=== PATIENT | male | born 1975 | race Caucasian/White ===

== ENCOUNTER 2020-03-24 12:26 | Emergency (ER) | payer OTHER ==
[~2020-03-24] VITALS: Ht 170.2 cm; Wt 108.9 kg
--- NOTE | 2020-03-24 13:14 | Emergency Department Note ---
History of Present Illnes History of Present Illness Chief Complaint: Extremity Trauma/Pain History of Present Illness This is a 44 year old male arrived to the ED with atraumatic right foot pain. Patient states the pain is isolated to the base of his second toe, denies any trauma. Patient states pain is worse with ambulation. Patient denies any numbness or weakness. 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 Any updates have been documented here. (LUCRECIA ALVARADO DO) Past Medical History Recent Fever: No Clinical Suspicion of Infectio: No New/Unexplained Change in Ment: No Past Medical History: COPD Other Surgery: KNEE (LUCRECIA ALVARADO DO) Social History Smoking Cessation: Current some day smoker Counseling Performed: Yes Alcohol Use: Social Any Illegal Drug Use: No TB Exposure/Symptoms: No Physically hurt or threatened: No (LUCRECIA ALVARADO, ) Family History Family history of heart diseas: Yes (LUCRECIA ALVARADO DO) Other Last Tetanus: utd (LUCRECIA ALVARADO DO) Review of Systems Review of Systems Constitutional: Reports no symptoms EENTM: Reports no symptoms Cardiovascular: Reports no symptoms Respiratory: Reports no symptoms Gastrointestinal: Reports no symptoms Genitourinary: Reports no symptoms Musculoskeletal: Reports as per HPI, Reports joint pain Integumentary: Reports no symptoms Neurological: Reports no symptoms Psychological: Reports no symptoms Endocrine: Reports no symptoms Hematological/Lymphatic: Reports no symptoms (LUCRECIA ALVARADO, ) Physical Exam Related Data Allergies: Coded Allergies: No Known Allergies (Unverified , 10/18/14) Triage Vital Signs Vital Signs Date Time Temp Pulse Resp B/P (MAP) Pulse Ox O2 Delivery O2 Flow Rate FiO2 03/24/20 12:33 97.8 93 16 155/82 97 Vital signs reviewed: Yes (LUCRECIA ALVARADO, ) Physical Exam CONSTITUTIONAL Constitutional: Present well-developed, Present well-nourished HENT HENT: Present normocephalic, Present atraumatic, Present oropharynx clear/moist, Present nose normal HENT L/R: Present left ext ear normal, Present right ext ear normal EYES Eyes: Reports PERRL, Reports conjunctivae normal NECK Neck: Present ROM normal PULMONARY Pulmonary: Present effort normal, Present breath sounds normal CARDIOVASCULAR Cardiovascular: Present regular rhythm, Present heart sounds normal, Present capillary refill normal, Present normal rate GASTROINTESTINAL Abdominal: Present soft, Present nontender, Present bowel sounds normal GENITOURINARY Genitourinary: Present exam deferred SKIN Skin: Present warm, Present dry MUSCULOSKELETAL Musculoskeletal: Present ROM normal, Present swelling, Present other (right lower extremity cellulitis noted with swelling and erythema, normal DP/PT pulses, compartments otherwise soft) NEUROLOGICAL Neurological: Present alert, Present oriented x 3, Present no gross motor or sensory deficits PSYCHOLOGICAL Psychological: Present mood/affect normal, Present judgement normal (LUCRECIA ALVARADO DO) Results Laboratory Lab results reviewed: Yes (LUCRECIA ALVARADO DO) Imaging Imaging results reviewed: Yes (LUCRECIA ALVARADO DO) Assessment & Plan Medical Decision Making MDM 41-year-old male arrives to the ED with complaints of right lower foot pain, noted to be markedly swollen superimposed cellulitis. Patient given a dose of IV antibiotics for further workup and management. (LUCRECIA ALVARADO DO) MDM 44 yom with pain in the R foot. Diff Dx : cellulitis, osteomyelitis, fracture, foot sprain, gout (TARIQ SOUTH DO) Assessment & Plan Final Impression: (1) Cellulitis of foot, right (TARIQ SOUTH DO) Depart Disposition: HOME, SELF-CARE Last Vital Signs Date Time Temp Pulse Resp B/P (MAP) Pulse Ox O2 Delivery O2 Flow Rate FiO2 03/24/20 12:33 97.8 93 16 155/82 97 (LUCRECIA ALVARADO DO) Last Vital Signs Date Time Temp Pulse Resp B/P (MAP) Pulse Ox O2 Delivery O2 Flow Rate FiO2 03/24/20 16:11 65 16 112/72 100 03/24/20 13:22 98.6 (TARIQ SOUTH DO) Home Meds Active Scripts Tramadol Hcl (ULTRAM) 50 Mg Tablet, 50 MG PO Q6HR PRN for Mild Pain (1-3) or Fever>100.8, #12 TAB Prov:LUCRECIA ALVARADO DO 03/24/20 LUCRECIA ALVARADO DO Mar 24, 2020 12:57 TARIQ SOUTH Mar 24, 2020 20:05
--- NOTE | 2020-03-24 14:17 | Diagnostic Imaging Report ---
EXAMINATION: FOOT RIGHT COMPLETE INDICATION: Foot pain COMPARISON: None FINDINGS: No acute fracture or dislocation. Alignment is anatomic. Soft tissues appear unremarkable. Mild Achilles enthesopathy. IMPRESSION: No acute osseous injury. Signed by: Alfred Thomas MD on 03/24/2020 2:14 PM
[2020-03-24] MEDS ORDERED: ULTRAM50 MG PO (14:46)
[2020-03-24] MEDS ORDERED: CLINDAMYCIN PHOS 900MG/ 50ML 50 ML IV STA (15:42)
[2020-03-24 16:13] LABS: BASOPHILS # (AUTO) 0.1 (0.0-0.1); BASOPHILS % 0.6 % (0.0-1.0); EOSINOPHILS # (AUTO) 0.3 (0.0-0.4); EOSINOPHILS % 2.4 % (0.0-6.0); HEMATOCRIT 47.2 % (38.2-49.6); HEMOGLOBIN 15.3 g/dL (14.0-18.0); LYMPHOCYTES # (AUTO) 2.9 (1.0-3.2); LYMPHOCYTES % 21.8 % (18.0-39.1); MEAN CORPUSCULAR HEMOGLOBIN 29.5 pg (28-32); MEAN CORPUSCULAR HGB CONC 32.4 g/dL (31-35); MEAN CORPUSCULAR VOLUME 90.9 fL (81-99); MONOCYTES # (AUTO) 0.9 (0.2-0.8); MONOCYTES % 6.4 % (4.4-11.3); NEUTROPHILS % 67.8 % (38.7-80.0); PLATELET COUNT 231 x10e3/uL (140-360); RED BLOOD COUNT 5.19 x10e6/uL (4.3-5.7); RED CELL DISTRIBUTION WIDTH 12.9 % (11.7-14.4)
[2020-03-24 16:30] LABS: ALANINE AMINOTRANSFERASE 74 IU/L (0-55); ALBUMIN 4.1 g/dL (3.5-5.0); ALBUMIN/GLOBULIN RATIO 1.2 (0.8-2.0); ALKALINE PHOSPHATASE 102 IU/L (40-150); ANION GAP 18.8 mmol/L (8-16); BLOOD UREA NITROGEN 18 mg/dL (7-26); BUN/CREATININE RATIO 18 (6-25); CALCIUM 9.2 mg/dL (8.4-10.2); CARBON DIOXIDE 20 mmol/L (22-29); CHLORIDE 106 mmol/L (98-107); CREATININE, SERUM 1.02 mg/dL (0.72-1.25); EST GLOMERULAR FILTRATION RATE > 60 ML/MIN (60-); GLUCOSE 85 mg/dL (74-118); POTASSIUM 3.8 mmol/L (3.5-5.1); SODIUM 141 mmol/L (136-145)
[2020-03-24] MEDS ORDERED: HYDROCODONE/APAP 10MG-325MG TAB PO ONE (17:30)
[2020-03-24] MEDS ORDERED: TRAMADOL HCL 50 MG TAB PO PRN (18:45)
[2020-03-24] MEDS ORDERED: HYDRALAZINE HCL 20 MG/ML VIAL IV PRN (18:45)
[2020-03-24] MEDS ORDERED: ACETAMINOPHEN 325 MG TAB PO PRN (18:45)
[2020-03-24] MEDS ORDERED: ONDANSETRON HCL INJ 2MG/ML 2ML 2 MG/ML VIAL IV PRN (18:45)
[2020-03-24] MEDS ORDERED: FAMOTIDINE 20 MG/2 ML VIAL IV SCH (21:00)
[2020-03-25] MEDS ORDERED: CLINDAMYCIN PHOS 900MG/ 50ML 50 ML IV SCH
--- OUTSIDE RECORDS SUMMARY | 2020-05-05 21:07 | XMS REPORT | Continuity of Care Document ---
Author Author [facility] Organization [facility] Address [address] [place] [address] [place] [phone] Phone Unavailable Care Team Providers Care Technical Support Technician Name Role Phone Nelson ALVARADO Attphys Unavailable ZEKE MCKEON Admphynelson Unavailable Problems This patient has no known problems. Allergies, Adverse Reactions, Alerts This patient has no known allergies or adverse reactions. Medications This patient has no known medications. Procedures This patient has no known procedures. Results Test Description Test Time Test Comments Results Result Comments Source FOOT RIGHT COMPLETE 2020-03-24 13:57:[address] [address] Patient Name: RAYMOND ROB MR #: [id number] : 1975 Age/Sex: 44/M Req #: [id number] Adm Physician: Ordered by: LUCRECIA ALVARADO DO Report #: [id number] Location: ER Room/Bed: Procedure: [id number] DX/FOOT RIGHT COMPLETE Exam Date: 03/24/20 Exam Time: 1300 REPORT STATUS: Signed EXAMINATION: FOOT RIGHT COMPLETE INDICATION: Foot pain COMPARISON: None FINDINGS: No acute fracture or dislocation. Alignment is anatomic. Soft tissues appear unremarkable. Mild Achilles enthesopathy. IMPRESSION: No acute osseous injury. Signed by: Dave Yoder MD on 03/24/2020 2:14 PM Dictated By: DAVE YODER MD 13 Transcribed By: RUDDY on 03/24/201413 COPY TO: LUCRECIA ALVARADO DO
== END 2020-03-24 20:11 | disposition home or self-care (01) ==
LOC: ER 12:26 → ERHOLD 15:28 → UNDOADMOB 15:28
DX: L03.115 Cellulitis of right lower limb (principal); F17.200 Nicotine dependence, unspecified, uncomplicated; Z11.59 Encounter for screening for other viral diseases
CPT/HCPCS: 36415; 80053; 85025; 99283; U0002